=== PATIENT | male | born 1950 | race African-American/Black ===

== ENCOUNTER 2020-01-06 06:45 | Observation (INO) ==
[2020-01-06] MEDS ORDERED: NITROGLYCERIN 2% OINT 1 INCH/GM PACK TOP STA (07:03)
[2020-01-06] MEDS ORDERED: ENOXAPARIN 100 MG/ML SYRINGE SUBCUT STA (07:03)
[2020-01-06] MEDS ORDERED: ASPIRIN 325 MG TABLET PO STA (07:03)
[2020-01-06 07:16] LABS: Basophils % 0.5 % (0.0-0.8); Eosinophils # 0.1 10*3/uL (0.0-0.87); Hematocrit 40.9 VOL% (42.0-52.0); Immature Granulocytes % 0.3 %; Immature Granulocytes Absolute 0.02 #; Lymphocytes # 1.9 10*3/uL (1.4-4.0); Lymphocytes % 28.6 % (21.2-54.2); Mean Corpuscular HGB Conc 31.8 GM/DL (32-36); Monocytes % 7.8 % (1.7-12.7); Neutrophils % 60.8 % (38.7-73.9); Platelet Count 176 T/CUMM (130-400); Red Cell Distribution Width 15.2 % (9.3-17.3); White Blood Count 6.5 T/CUMM (4-12)
[2020-01-06 07:55] LABS: Albumin 3.6 G/DL (3.4-5.0); Calcium 8.7 MG/DL (8.5-10.1); Osmolality,Calculated 280.4 MOS/KG (273-304); Total Protein 6.8 G/DL (6.4-8.3)
[2020-01-06] MEDS ORDERED: SACUBITRIL/VALSARTAN 49-51 MG TABLET PO SCH (10:30)
[2020-01-06] MEDS: carvediloL 12.5 MG TABLET PO SCH ×2 (13:38→21:07)
[2020-01-06] MEDS: Fluticasone Furoate-Vilanterol [Breo Ellipta] 1 inh INH SCH (13:38)
[2020-01-06] MEDS: APIXABAN 5 MG TABLET PO SCH ×2 (13:39→21:07)
[2020-01-06] MEDS: CLOPIDOGREL 75 MG TABLET PO SCH (13:39)
[2020-01-06] MEDS: PANTOPRAZOLE 40 MG TABLET PO SCH ×2 (13:39→21:07)
[2020-01-06] MEDS: POTASSIUM CHLORIDE 10 MEQ TABLET PO SCH (13:39)
[2020-01-06] MEDS: FUROSEMIDE 20 MG TABLET PO SCH ×2 (13:39→21:07)
[2020-01-06] MEDS: FLUTICASONE 50 MCG NASAL SPRAY 16 GM BOTTLE BOTH NARES SCH (13:39)
[2020-01-06] MEDS: MONTELUKAST 10 MG TABLET PO SCH ×2 (13:39→21:07)
[2020-01-06] MEDS ORDERED: SIMVASTATIN 20 MG TABLET PO SCH (21:00)
[2020-01-06] MEDS: SACUBITRIL/VALSARTAN 49-51 MG TABLET PO SCH (21:08)
[2020-01-07] MEDS ORDERED: diphenhydrAMINE CAP 25 MG CAPSULE PO ONE (06:26)
[2020-01-07] MEDS ORDERED: DIAZEPAM 5 MG TABLET PO ONE (06:26)
[2020-01-07] MEDS ORDERED: SODIUM CHLORIDE 0.9% 1,000 ML IV SCH (06:30)
[2020-01-07] MEDS: APIXABAN 5 MG TABLET PO SCH ×2 (07:29→09:49)
[2020-01-07] MEDS: carvediloL 12.5 MG TABLET PO SCH ×2 (07:29→09:49)
[2020-01-07] MEDS: PANTOPRAZOLE 40 MG TABLET PO SCH ×2 (07:30→09:50)
[2020-01-07] MEDS: SACUBITRIL/VALSARTAN 49-51 MG TABLET PO SCH ×2 (07:30→09:50)
[2020-01-07] MEDS: CLOPIDOGREL 75 MG TABLET PO SCH ×2 (07:30→09:50)
[2020-01-07] MEDS ORDERED: HEPARIN/NACL 0.9% 2 UNITS/ML 1,000 ML IV ONE (07:36)
[2020-01-07] MEDS ORDERED: LIDOCAINE 1% 20 ML VIAL ONE (07:52)
[2020-01-07] MEDS ORDERED: MIDAZOLAM 2 MG/2 ML VIAL ONE (07:52)
[2020-01-07] MEDS ORDERED: fentaNYL 100 MCG/2 ML VIAL ONE (07:52)
[2020-01-07] MEDS: POTASSIUM CHLORIDE 10 MEQ TABLET PO SCH (09:49)
[2020-01-07] MEDS: FUROSEMIDE 20 MG TABLET PO SCH (09:49)
[2020-01-07] MEDS: Fluticasone Furoate-Vilanterol [Breo Ellipta] 1 inh INH SCH (09:50)
[2020-01-07] MEDS: MONTELUKAST 10 MG TABLET PO SCH (09:54)
[2020-01-07] MEDS: FLUTICASONE 50 MCG NASAL SPRAY 16 GM BOTTLE BOTH NARES SCH (09:54)
[2020-01-07 14:01] VITALS: BP 119/77
== END 2020-01-07 17:00 | disposition home or self-care (01) ==
LOC: N.EDINP 06:45 → N.ED 06:45 → N.5E 12:09
PROVIDERS: ADMIT Family Medicine; ATTEND Family Medicine